=== PATIENT | male | born 1960 | race Caucasian/White ===

== ENCOUNTER → 2017-10-19 | Outpatient (CLI) | payer BC ==
[2017-10-19 08:56] LABS: Anion Gap 14 mmol/L; Blood Urea Nitrogen 12 mg/dL (9-20); Calcium 10.1 mg/dL (8.4-10.2); Carbon Dioxide 26 mmol/L (22-30); Chloride 101 mmol/L (98-107); Glucose 92 mg/dL (74-99); Potassium 4.6 mmol/L (3.5-5.1); Sodium 141 mmol/L (137-145)
== END | disposition home or self-care (01) ==
LOC: LABWHC1 07:34
PROVIDERS: ATTEND Internal Medicine Clinical Cardiac Electrophysiology
DX: E78.5 Hyperlipidemia, unspecified (principal)
CPT/HCPCS: 36415; 80048

== ENCOUNTER → 2017-10-25 | Outpatient (CLI) | payer BC ==
--- NOTE | 2017-10-25 09:28 | CT ---
EXAMINATION TYPE: CT angio thoracic/abd aorta DATE OF EXAM: 10/25/2017 COMPARISON: NONE HISTORY: Abdominal aortic aneurysm CT DLP: 760.2 mGycm. Automated Exposure Control for Dose Reduction was Utilized. CONTRAST: CT scan of the thorax, abdomen and pelvis is performed with IV Contrast, patient injected with 100 mL of Omnipaque 350. Three-dimensional reconstructions performed on an alternate workstation. FINDINGS: LUNGS: The lungs are grossly clear, there is no concerning parenchymal mass or nodule identified. Pritesh e minimal subpleural nodularity axial image 27-29 likely is postinflammatory There is no pleural ef fusion or pneumothorax seen. The tracheobronchial tree is patent. MEDIASTINUM: There are no greater than 1 cm hilar or mediastinal lymph nodes. No pericardial effusi on is seen. OTHER: Some reflux of contrast into the hepatic veins could be due to some right ventricular dysfunct ion. LIVER/GB: There is a mass present within the liver adjacent to the inferior vena cava measuring 6.8 c m with some mass effect seen on axial image 61 that is not fully characterized. Mass is within the in ferior aspect of the right lobe of the liver adjacent to the saravanan. Liver is enlarged. Gallbladder is unremarkable. PANCREAS: No significant abnormality is seen. SPLEEN: No significant abnormality is seen. ADRENALS: No significant abnormality is seen. KIDNEYS: Hypoechoic focus associated with the left kidney measures approximately 2.7 cm, no hydroneph rosis bilaterally BOWEL: No significant abnormality is seen. GENITAL ORGANS: No gross abnormality seen. LYMPH NODES: No greater than 1cm abdominal or pelvic lymph nodes are appreciated. OSSEOUS STRUCTURES: Degenerative disc changes are present in the lumbar spine especially at L5-S1 wit h associated vacuum phenomenon, facet arthropathy. Umbilical hernia contains fat. OTHER: Aorta shows normal caliber, there is no luminal abnormality to suggest dissection. 3 super aor tic branch vessels are present. IMPRESSION: No evident aneurysm. There is a liver mass, consider liver MRI. Probable cortical cyst wi thin the left kidney. Additional findings above.
== END | disposition home or self-care (01) ==
LOC: RADCTMAIN 07:32
PROVIDERS: ATTEND Internal Medicine Clinical Cardiac Electrophysiology
DX: R16.0 Hepatomegaly, not elsewhere classified (principal); R91.8 Other nonspecific abnormal finding of lung field
CPT/HCPCS: 75635; 71275; Q9967

== ENCOUNTER 2017-10-26 00:11 | Emergency (ER) | payer BC ==
[2017-10-26 00:18] VITALS: RESP 18
--- NOTE | 2017-10-26 00:28 | ED ---
Arrhythmia/Palpitations HPI - General Chief Complaint: Arrhythmia/Palpitations Stated Complaint: Tachycardia/Confusion Time Seen by Provider: 10/26/17 00:19 Source: patient Mode of arrival: ambulatory Limitations: no limitations - History of Present Illness Initial Comments: This patient is a 57-year-old man who presents to be evaluated for palpitations and a feeling like he was losing track of time. The patient states that all these symptoms came on around 10 PM tonight while he was at work. He states that he would get a feeling like his heart was racing, and then he felt like he was losing small amounts of time. Coworkers also told him that he looked like he was a little funny. The patient did not lose consciousness. He denies chest pain, dyspnea, diaphoresis, nausea or vomiting. He is not having any neurologic symptoms, including no change in vision or hearing, difficulty with speech or swallowing, weakness or numbness of the extremities. Patient relates that he had a contrast CT of the chest abdomen pelvis to follow-up on a possible aortic aneurysm, and this study was performed earlier today, the patient wonders if what happened tonight was related to the contrast. He states that when the symptoms came on tonight he did have a flushing sensation that felt similar to what he experienced when he received the CAT scan dye. Complaint: "heart racing" Onset/Timin -: hour(s) Context: occurred during rest Associated Symptoms: other (Mental status change) - Related Data Home Medications Medication Instructions Recorded Confirmed Simvastatin [Zocor] 20 mg PO DAILY 04/17/14 06/24/15 Allergies Allergy/AdvReac Type Severity Reaction Status Date / Time bee pollen Allergy Anaphylaxis Verified 10/26/17 00:18 Review of Systems ROS Statement: Those systems with pertinent positive or pertinent negative responses have been documented in the HPI. ROS Other: All systems not noted in ROS Statement are negative. Constitutional: Denies: fever, chills, weakness Eyes: Denies: vision change Respiratory: Denies: cough, dyspnea Cardiovascular: Reports: as per HPI, palpitations. Denies: chest pain, edema Gastrointestinal: Denies: abdominal pain, vomiting, diarrhea Musculoskeletal: Denies: back pain Skin: Denies: rash Neurological: Reports: as per HPI, confusion. Denies: headache, weakness, numbness, paresthesias Past Medical History Past Medical History: Hyperlipidemia Additional Past Medical History / Comment(s): "leaky valve" per pt. History of Any Multi-Drug Resistant Organisms: None Reported Past Surgical History: No Surgical Hx Reported Past Anesthesia/Blood Transfusion Reactions: No Reported Reaction Past Psychological History: No Psychological Hx Reported Smoking Status: Never smoker Past Alcohol Use History: None Reported Past Drug Use History: None Reported General Exam Limitations: no limitations General appearance: alert, in no apparent distress Head exam: Present: atraumatic, normocephalic Eye exam: Present: normal appearance. Absent: scleral icterus, conjunctival injection ENT exam: Present: normal oropharynx Respiratory exam: Present: normal lung sounds bilaterally. Absent: respiratory distress, wheezes, rales, rhonchi, stridor Cardiovascular Exam: Present: regular rate, normal rhythm, normal heart sounds. Absent: systolic murmur, diastolic murmur, rubs, gallop GI/Abdominal exam: Present: soft. Absent: distended, tenderness, guarding, rebound, mass Extremities exam: Present: normal inspection, normal capillary refill. Absent: pedal edema, calf tenderness Back exam: Present: normal inspection. Absent: CVA tenderness (R), CVA tenderness (L) Neurological exam: Present: alert, oriented X3, normal gait Skin exam: Present: warm, dry, intact, normal color. Absent: rash Course Vital Signs 10/26/17 00:14 Temperature 98.7 F Pulse Rate 71 Respiratory 18 Rate Blood Pressure 142/88 O2 Sat by Pulse 97 Oximetry EKG Findings - EKG Results: EKG: interpreted by SHANEKA COOPER, sinus rhythm (Rate approximate 69 bpm), normal axis, normal QRS, normal ST/T, no acute changes - NV, Pacemaker, Normal: Normal tracing: normal tracing Medical Decision Making - Medical Decision Making Patient is a 57-year-old man who presents with complaint of having had palpitations tonight with what may be near syncopal episode. He has an EKG that is in normal sinus rhythm and the monitor has not shown arrhythmia. I did offer the patient admission for further telemetry monitoring, but at this point he states he is feeling well and wants to follow-up. He does see Dr. Hdz and he will follow with Dr. Hdz calling for an appointment in the morning. We discussed return parameters and appropriate follow-up. - Lab Data Result diagrams: 10/26/17 00:30 10/26/17 00:30 Lab Results 10/26/17 10/26/17 10/26/17 Range/Units 00:30 00:30 00:30 WBC 9.4 (3.8-10.6) k/uL RBC 5.27 (4.30-5.90) m/uL Hgb 16.6 (13.0-17.5) gm/dL Hct 46.4 (39.0-53.0) % MCV 88.1 (80.0-100.0) fL MCH 31.4 (25.0-35.0) pg MCHC 35.7 (31.0-37.0) g/dL RDW 12.8 (11.5-15.5) % Plt Count 374 (150-450) k/uL Neutrophils % 67 % Lymphocytes % 26 % Monocytes % 4 % Eosinophils % 1 % Basophils % 1 % Neutrophils # 6.3 (1.3-7.7) k/uL Lymphocytes # 2.5 (1.0-4.8) k/uL Monocytes # 0.4 (0-1.0) k/uL Eosinophils # 0.1 (0-0.7) k/uL Basophils # 0.1 (0-0.2) k/uL PT (9.0-12.0) sec INR (<1.2) APTT (22.0-30.0) sec D-Dimer (<0.60) mg/L FEU Sodium 141 (137-145) mmol/L Potassium 4.6 (3.5-5.1) mmol/L Chloride 102 (98-107) mmol/L Carbon Dioxide 26 (22-30) mmol/L Anion Gap 13 mmol/L BUN 13 (9-20) mg/dL Creatinine 1.00 (0.66-1.25) mg/dL Est GFR (CKD-EPI)AfAm >90 (>60 ml/min/1.73 sqM) Est GFR (CKD-EPI)NonAf 83 (>60 ml/min/1.73 sqM) Glucose 100 H (74-99) mg/dL Calcium 10.1 (8.4-10.2) mg/dL Magnesium 2.4 H (1.6-2.3) mg/dL Total Bilirubin 0.6 (0.2-1.3) mg/dL AST 30 (17-59) U/L ALT 44 (21-72) U/L Alkaline Phosphatase 62 (38-126) U/L Total Creatine Kinase 149 (55-170) U/L CK-MB (CK-2) 1.0 (0.0-2.4) ng/mL CK-MB (CK-2) Rel Index 0.7 Troponin I <0.012 (0.000-0.034) ng/mL Total Protein 7.5 (6.3-8.2) g/dL Albumin 4.7 (3.5-5.0) g/dL TSH 1.070 (0.465-4.680) mIU/L 10/26/17 Range/Units 00:30 WBC (3.8-10.6) k/uL RBC (4.30-5.90) m/uL Hgb (13.0-17.5) gm/dL Hct (39.0-53.0) % MCV (80.0-100.0) fL MCH (25.0-35.0) pg MCHC (31.0-37.0) g/dL RDW (11.5-15.5) % Plt Count (150-450) k/uL Neutrophils % % Lymphocytes % % Monocytes % % Eosinophils % % Basophils % % Neutrophils # (1.3-7.7) k/uL Lymphocytes # (1.0-4.8) k/uL Monocytes # (0-1.0) k/uL Eosinophils # (0-0.7) k/uL Basophils # (0-0.2) k/uL PT 10.1 (9.0-12.0) sec INR 1.0 (<1.2) APTT 22.6 (22.0-30.0) sec D-Dimer 0.19 (<0.60) mg/L FEU Sodium (137-145) mmol/L Potassium (3.5-5.1) mmol/L Chloride (98-107) mmol/L Carbon Dioxide (22-30) mmol/L Anion Gap mmol/L BUN (9-20) mg/dL Creatinine (0.66-1.25) mg/dL Est GFR (CKD-EPI)AfAm (>60 ml/min/1.73 sqM) Est GFR (CKD-EPI)NonAf (>60 ml/min/1.73 sqM) Glucose (74-99) mg/dL Calcium (8.4-10.2) mg/dL Magnesium (1.6-2.3) mg/dL Total Bilirubin (0.2-1.3) mg/dL AST (17-59) U/L ALT (21-72) U/L Alkaline Phosphatase (38-126) U/L Total Creatine Kinase (55-170) U/L CK-MB (CK-2) (0.0-2.4) ng/mL CK-MB (CK-2) Rel Index Troponin I (0.000-0.034) ng/mL Total Protein (6.3-8.2) g/dL Albumin (3.5-5.0) g/dL TSH (0.465-4.680) mIU/L Disposition Clinical Impression: Palpitations Disposition: HOME SELF-CARE Condition: Good Instructions: Palpitations (ED) Referrals: Asad Greco MD [Primary Care Provider] - 1-2 days
[2017-10-26 01:15] LABS: Basophils # (A) 0.1 k/uL (0-0.2); Basophils % (A) 1 %; Eosinophils # (A) 0.1 k/uL (0-0.7); Eosinophils % (A) 1 %; HCT 46.4 % (39.0-53.0); HGB 16.6 gm/dL (13.0-17.5); Lymphocytes # (A) 2.5 k/uL (1.0-4.8); Lymphocytes % (A) 26 %; MCH 31.4 pg (25.0-35.0); MCHC 35.7 g/dL (31.0-37.0); MCV 88.1 fL (80.0-100.0); Mean Platelet Volume 6.4; Monocytes # (A) 0.4 k/uL (0-1.0); Monocytes % (A) 4 %; Neutrophils # (A) 6.3 k/uL (1.3-7.7); Neutrophils % (A) 67 %; Platelet Count 374 k/uL (150-450); RBC 5.27 m/uL (4.30-5.90); RDW 12.8 % (11.5-15.5); WBC 9.4 k/uL (3.8-10.6)
[2017-10-26 01:16] LABS: ALT 44 U/L (21-72); AST 30 U/L (17-59); Albumin 4.7 g/dL (3.5-5.0); Alkaline Phosphatase 62 U/L (38-126); Anion Gap 13 mmol/L; Blood Urea Nitrogen 13 mg/dL (9-20); Calcium 10.1 mg/dL (8.4-10.2); Carbon Dioxide 26 mmol/L (22-30); Chloride 102 mmol/L (98-107); Glucose 100 mg/dL (74-99); Potassium 4.6 mmol/L (3.5-5.1); Sodium 141 mmol/L (137-145); Total Bilirubin 0.6 mg/dL (0.2-1.3); Total Protein 7.5 g/dL (6.3-8.2)
[2017-10-26 01:25] LABS: D-Dimer 0.19 mg/L FEU (<0.60); Partial Thromboplastin Time 22.6 sec (22.0-30.0); Prothrombin Time 10.1 sec (9.0-12.0)
[2017-10-26 01:30] LABS: Creatine Kinase 149 U/L (55-170)
[2017-10-26 01:43] LABS: Troponin I <0.012 ng/mL (0.000-0.034)
[2017-10-26 02:25] VITALS: BP 133/81; PULSE 78; TEMP 98.2
== END 2017-10-26 02:25 | disposition home or self-care (01) ==
LOC: EC 00:11
DX: R00.2 Palpitations (principal); R41.82 Altered mental status, unspecified; E78.5 Hyperlipidemia, unspecified; Z79.899 Other long term (current) drug therapy; Z91.030 Bee allergy status
CPT/HCPCS: 36415; 80053; 82550; 82553; 83735; 84443; 84484; 85025; 85379; 85610; 85730; 93005; 99285

== ENCOUNTER → 2017-10-27 | Outpatient (CLI) | payer BC ==
--- NOTE | 2017-10-27 21:13 | MR ---
MR abdomen with and without contrast HISTORY: Abnormal CT, kidney mass, liver mass Multiplanar multisequence and postcontrast images following 10 cc Gadavist IV through the abdomen Correlation to prior exam CT 10/25/2017 The liver mass shows increased signal on T2-weighted images and measures approximately 6.9 x 6.1 x 6. 4 cm and is well-defined. There is some local mass effect on the right lateral wall of the inferior v eduardo cava The smaller lesion within the peripheral aspect of the right lobe of the liver shows similar signal characteristics and measures approximately 2 cm in greatest dimension. Following contrast adm inistration there is centripetal nodular and progressive enhancement over time compatible with mtich iomas. Some additional subcentimeter foci of increased signal on T2 weighted sequences, low signal on T1 compatible with scattered cysts. The liver shows signal drop on out of phase imaging suggesting underlying hepatic steatosis. Focus in the posterior aspect of the midpole the left kidney is again noted and shows no appreciable enhancement following contrast administration measuring approximately 2.5 cm. Increased signal seen o n T2-weighted sequences within this lesion. No evident mural nodule. IMPRESSION: Hemangiomas and cysts within the liver. Findings compatible with simple cyst within the l eft kidney.
== END | disposition home or self-care (01) ==
LOC: RADMRIMAIN 18:37
PROVIDERS: ATTEND Family Medicine
DX: K76.89 Other specified diseases of liver (principal); D18.09 Hemangioma of other sites
CPT/HCPCS: 74183; A9581

== ENCOUNTER → 2019-11-02 | Day surgery (SDC) | payer BC ==
[2019-10-31 14:13] VITALS: BMI 33.2
[~2019-11-02] MED LIST: LACTATED RINGERS 1,000 ML IV SCH; LIDOCAINE 1% (10MG/ML) FOR IV START INTRADERMA PRN; LIDOCAINE 1% INJ 10MG/ML (20 ML MDV) ONE; PROPOFOL 10 MG/ML 20 ML VIAL IV ONE
[2019-11-02 10:45] VITALS: TEMP 98.6
--- NOTE | 2019-11-02 11:12 | P.PCN ---
Date of Procedure: 11/02/19 Procedure(s) Performed: BRIEF HISTORY: Patient is a 59-year-old pleasant white male scheduled for an elective colonoscopy as a part of screening for colorectal neoplasia. His brother was diagnosed with colon cancer at age 35. Last colonoscopy was 10 years ago PROCEDURE PERFORMED: Colonoscopy. PREOPERATIVE DIAGNOSIS: Screening for colon cancer and family history of colon cancer. IV sedation per Anesthesia. PROCEDURE: After informed consent was obtained, the patient, was brought into the endoscopy unit. IV sedation was administered by Anesthesia under continuous monitoring. Digital rectal examination was normal. Initially the Olympus CF-160 flexible video colonoscope was then inserted in the rectum, gradually advanced into the cecum without any difficulty. Careful examination was performed as the scope was gradually being withdrawn. Ileocecal valve and the appendiceal orifice were visualized and appeared normal. Prep was excellent. Mucosa of the cecum, ascending colon, transverse colon, descending colon, sigmoid colon, and rectum appeared normal. Retroflexion was performed in the rectum and no lesions were seen. Scattered sigmoid diverticula cyst. The patient tolerated the procedure well. IMPRESSION: Normal-appearing colon from rectum to cecum with no evidence of colorectal neoplasia. Scattered sigmoid diverticulosis. RECOMMENDATIONS: Findings of this examination were discussed with the patient as well as his family. He was advised to have a repeat screening colonoscopy every 5 years because of the family history of colon cancer.
[2019-11-02 11:21] VITALS: RESP 17
[2019-11-02 11:31] VITALS: BP 100/60; PULSE 79
== END ==
LOC: ORWHC2ENDO 09:49
PROVIDERS: ATTEND Internal Medicine Gastroenterology
DX: Z12.11 Encounter for screening for malignant neoplasm of colon (principal); K57.30 Diverticulosis of large intestine without perforation or abscess without bleeding; E78.5 Hyperlipidemia, unspecified; Z87.891 Personal history of nicotine dependence; Z79.899 Other long term (current) drug therapy; Z80.0 Family history of malignant neoplasm of digestive organs
CPT/HCPCS: J2001; J2704; G0105; 45378

== ENCOUNTER → 2020-04-24 | Outpatient (CLI) | payer BC ==
--- NOTE | 2020-04-25 08:32 | XR ---
EXAMINATION TYPE: XR chest 2V DATE OF EXAM: 04/24/2020 COMPARISON: Prior chest x-ray 04/10/2015 HISTORY: R09.1 TECHNIQUE: Frontal and lateral views of the chest are obtained. FINDINGS: There is no focal air space opacity, pleural effusion, or pneumothorax seen. The cardiac silhouette size is within normal limits. The osseous structures are intact. IMPRESSION: No acute cardiopulmonary process.
== END | disposition home or self-care (01) ==
LOC: RAD 16:02
PROVIDERS: ATTEND Family Medicine
DX: R09.1 Pleurisy (principal)
CPT/HCPCS: 71046

== ENCOUNTER 2020-10-10 18:13 | Emergency (ER) | payer BC ==
[2020-10-10 18:19] VITALS: BP 163/80; PULSE 71; RESP 16; TEMP 98.4
[2020-10-10] MEDS ORDERED: LIDOCAINE 1% INJ 10MG/ML (20 ML MDV) SQ ONE (18:36)
--- NOTE | 2020-10-10 19:12 | ED ---
Wound/Laceration HPI - General Chief Complaint: Wound/Laceration Stated Complaint: Left leg wound Source: patient, RN notes reviewed Mode of arrival: ambulatory Limitations: no limitations - History of Present Illness Initial Comments: Patient is a 60-year-old male that presents to emergency department with left calf puncture wound. He noted that he was removing snow and punctured it on either his trailer or a shovel. He denied any pain in stating he was 0 out of 10. Wound to the left calf is approximately 1.5x1.5 cm with irregular edges. He did note that he is up-to-date on his tetanus as his last shot was in 2013. He denied any headache chest pain shortness breath nausea vomiting diarrhea comes patient to fatigue chills. - Related Data Home Medications Medication Instructions Recorded Confirmed Atorvastatin [Lipitor] 20 mg PO DAILY 10/31/19 11/02/19 Previous Rx's Medication Instructions Recorded Sulfamethox-Tmp 800-160Mg [Bactrim 1 each PO Q12HR #20 tab 10/10/20 Ds] Allergies Allergy/AdvReac Type Severity Reaction Status Date / Time bee pollen Allergy Anaphylaxis Verified 10/10/20 18:19 Review of Systems ROS Statement: Those systems with pertinent positive or pertinent negative responses have been documented in the HPI. ROS Other: All systems not noted in ROS Statement are negative. Past Medical History Past Medical History: Hyperlipidemia Additional Past Medical History / Comment(s): "leaky valve" per pt. History of Any Multi-Drug Resistant Organisms: None Reported Past Surgical History: No Surgical Hx Reported Additional Past Surgical History / Comment(s): HERNIA SURGERY (), VASECTOMY, COLONOSCOPY Past Anesthesia/Blood Transfusion Reactions: No Reported Reaction Additional Past Anesthesia/Blood Transfusion Reaction / Comment(s): SENSITIVE TO MEDICATIONS Past Psychological History: No Psychological Hx Reported Smoking Status: Never smoker Past Alcohol Use History: None Reported Past Drug Use History: None Reported - Past Family History Father Family Medical History: Cancer Additional Family Medical History / Comment(s): LUNG CANCER General Exam Limitations: no limitations General appearance: alert, in no apparent distress Head exam: Present: atraumatic, normocephalic, normal inspection Eye exam: Present: normal appearance, PERRL, EOMI. Absent: scleral icterus, conjunctival injection, periorbital swelling ENT exam: Present: mucous membranes moist Neck exam: Present: normal inspection. Absent: tenderness, meningismus, lymphadenopathy Respiratory exam: Present: normal lung sounds bilaterally. Absent: respiratory distress, wheezes, rales, rhonchi, stridor Cardiovascular Exam: Present: regular rate, normal rhythm, normal heart sounds. Absent: systolic murmur, diastolic murmur, rubs, gallop, clicks Extremities exam: Present: normal inspection, full ROM, normal capillary refill, other (Roller Turner wound to the posterior aspect of the left calf on the lateral side.). Absent: tenderness, pedal edema, joint swelling, calf tenderness Neurological exam: Present: alert, oriented X3, CN II-XII intact Psychiatric exam: Present: normal affect, normal mood Skin exam: Present: warm, dry, intact, normal color, other (1.5 x 1.5 cm laceration to the posterior lateral aspect of the left calf.). Absent: rash Course Vital Signs 10/10/20 18:17 Temperature 98.4 F Pulse Rate 71 Respiratory 16 Rate Blood Pressure 163/80 O2 Sat by Pulse 98 Oximetry Procedures - Laceration Laceration #1 Consent Obtained: verbal consent Site: lower extremity Size (cm): 2 Description: irregular Depth: simple, single layer Sedation/Analgesia: none Anesthetic Used: lidocaine 1% Anesthesia Technique: local infiltration Amount (mls): 5 Pre-repair: irrigated extensively Type of Sutures: nylon, vicryl Size of Sutures: 4-0 Number of Sutures: 8 Technique: simple, interrupted Patient Tolerated Procedure: well, no complications Medical Decision Making - Medical Decision Making She will male with puncture wound to left calf. X-ray of left lower extremity ordered. 1% lidocaine ordered. Patient handled suturing well. Case discussed with Dr. Rae, decided was located discharge patient home with oral antibiotics. - Radiology Data Radiology results: report reviewed, image reviewed No acute fracture seen Disposition Clinical Impression: Laceration Disposition: HOME SELF-CARE Condition: Stable Instructions (If sedation given, give patient instructions): Care For Your S titches (ED), Laceration (ED) Additional Instructions: Please return to the Emergency Department if symptoms worsen or any other concerns. Follow-up with primary care 1-2 days. Take antibiotics as prescribed until complete. Come back in 7-10 days for suture removal. Take [id number] pain medication as needed for pain control. Do not wash sutures or laceration from his 24 hours, then use warm water mild soap. After 24 hours he can leave to open air. Is patient prescribed a controlled substance at d/c from ED?: No Referrals: Asad Greco MD [Primary Care Provider] - 1-2 days Time of Disposition: 19:54
--- NOTE | 2020-10-10 19:16 | XR ---
EXAMINATION TYPE: XR tibia fibula LT DATE OF EXAM: 10/10/2020 COMPARISON: NONE HISTORY: Laceration TECHNIQUE: 4 views FINDINGS: I see no fracture nor dislocation. There is soft tissue air at the posterior upper calf on the lateral view consistent with laceration. There is also a linear metallic wire foreign body in the soft tissues posterior to the proximal tibia between middle and distal thirds. IMPRESSION: Soft tissue foreign body. Soft tissue air. No fracture seen.
== END 2020-10-10 20:06 | disposition home or self-care (01) ==
LOC: EC 18:13
DX: S81.812A Laceration without foreign body, left lower leg, initial encounter (principal); E78.5 Hyperlipidemia, unspecified; Z79.899 Other long term (current) drug therapy; Z91.030 Bee allergy status; W27.8XXA Contact with other nonpowered hand tool, initial encounter; Y93.89 Activity, other specified
CPT/HCPCS: 73590; 99283; 12001; J2001

== ENCOUNTER → 2021-08-04 | Outpatient (CLI) | payer BC ==
--- NOTE | 2021-08-04 16:27 | XR ---
EXAMINATION TYPE: XR chest 2V DATE OF EXAM: 08/04/2021 COMPARISON: 04/24/2020 TECHNIQUE: PA and lateral views submitted. HISTORY: Cough FINDINGS: The lungs are clear and there is no pneumothorax, pleural effusion, or focal pneumonia. Heart size normal. No overt failure. IMPRESSION: 1. No acute process.
== END | disposition home or self-care (01) ==
LOC: RADXRMAIN 15:34
PROVIDERS: ATTEND Nurse Practitioner Family
DX: R05.3 Chronic cough (principal)
CPT/HCPCS: 71046

== ENCOUNTER → 2022-05-05 | Outpatient (CLI) | payer BC ==
[2022-05-05 17:57] LABS: HCT 44.7 % (39.6-50.0); MCH 29.9 pg (27.0-32.0); MCHC 33.6 g/dL (32.0-37.0); MCV 89.2 fL (80.0-97.0); Mean Platelet Volume 8.6 fL (9.5-12.2); NRBC Per 100 WBC 0 /100 WBCS (0.0-0.0); Platelet Count 358 X 10*3/uL (140-440); RBC 5.01 X 10*6/uL (4.40-5.60); RDW 12.7 % (11.5-14.5); WBC 9.21 X 10*3/uL (4.50-10.00)
[2022-05-05 18:08] LABS: African American GFR (CKD) 88.8 (60.0-200.0); Anion Gap 12.1 mmol/L (10.00-18.00); Blood Urea Nitrogen 9.7 mg/dL (9.0-27.0); Non-African American GFR(CKD) 76.6 (60.0-200.0)
== END | disposition home or self-care (01) ==
LOC: LABPAT 13:02
PROVIDERS: ATTEND Internal Medicine Interventional Cardiology
DX: Z01.812 Encounter for preprocedural laboratory examination (principal); E78.5 Hyperlipidemia, unspecified; I35.1 Nonrheumatic aortic (valve) insufficiency
CPT/HCPCS: 80051; 82565; 84520; 85027

== ENCOUNTER 2022-05-06 06:26 | Day surgery (SDC) | payer BC ==
[~2022-05-06 06:26] MED LIST changes: +ALPRAZolam 0.25 MG TAB PO PRN; +ALPRAZolam 0.5 MG TAB PO PRN; +HEPARIN SODIUM,PORCINE 10,000 UNIT in SODIUM CHLORIDE 0.9% 1,000 ML IRRIGATION PRN; +HEPARIN SODIUM,PORCINE 2,500 UNIT in SODIUM CHLORIDE 0.9% 250 ML IRRIGATION PRN; -LACTATED RINGERS 1,000 ML IV SCH; -LIDOCAINE 1% (10MG/ML) FOR IV START INTRADERMA PRN; -LIDOCAINE 1% INJ 10MG/ML (20 ML MDV) ONE; +NITROGLYCERIN SL TABS 0.4 MG TAB SUBLINGUAL PRN; -PROPOFOL 10 MG/ML 20 ML VIAL IV ONE; +SODIUM CHLORIDE 0.9% 1,000 ML in EMPTY BAG 1 BAG IV SCH
[2022-05-06] MEDS ORDERED: SODIUM CHLORIDE 0.9% 1,000 ML IV ONE ×2 (06:44→08:21)
[2022-05-06 06:53] VITALS: RESP 16; TEMP 98.7
[2022-05-06] MEDS ORDERED: ASPIRIN 325 MG TAB PO ONE (07:00)
[2022-05-06] MEDS ORDERED: ATORVASTATIN 80 MG TAB PO ONE (07:00)
[2022-05-06] MEDS ORDERED: VERAPAMIL 2.5 MG/ML 2 ML AMP ONE (07:17)
[2022-05-06] MEDS ORDERED: HEPARIN SODIUM 1,000 UN/ML (10ML VL) ONE (07:17)
[2022-05-06] MEDS ORDERED: fentaNYL (PF) 50 MCG/ML 2 ML AMP ONE (07:29)
[2022-05-06] MEDS ORDERED: fentaNYL (PF) 50 MCG/ML 2 ML AMP IVP ONE (07:33)
[2022-05-06] MEDS ORDERED: LIDOCAINE 1% INJ 10MG/ML (30 ML VIAL-PF) SQ ONE (07:39)
[2022-05-06] MEDS ORDERED: VERAPAMIL SYRINGE (5 MG/10 ML) INTRAARTER ONE (07:44)
[2022-05-06] MEDS ORDERED: HEPARIN SODIUM 1,000 UN/ML (10ML VL) IVP ONE (07:50)
[2022-05-06] MEDS ORDERED: IOPAMIDOL-370 125ML BTL INJ ONE (08:00)
[2022-05-06] MEDS ORDERED: RX INFO: IV CONTRAST WAS GIVEN 1 EACH MISC MISCELLANE PRN (08:11)
[2022-05-06] MEDS ORDERED: SODIUM CHLORIDE 0.9% 1,000 ML IV SCH (08:15)
--- NOTE | 2022-05-06 08:16 | P.CARDCATH ---
Date of Procedure: 05/06/22 Description of Procedure: Cardiac Catheterization: The patient is a 61-year-old male, followed by Dr. Hdz with a history of hyperlipidemia who has been complaining of dyspnea. He had an abnormal MPI. Recommendations were made regarding cardiac catheterization, the risks and the complications were discussed with the patient who is in full understanding and agreement. Procedure Description: Patient was brought to organic lab worker in fasting semi-sedated state after receiving Fentanyl and Benadryl achieiving moderate conscious sedated state. Using Xylocaine Anesthesia and Seldinger technique, a 6-[place] sheath was introduced in the right radial artery . Subsequently, selective coronary angiography was performed using a 5-[place] 3.5 bend left Krista and 5 bend right Krista catheter. Multiple views of the coronary artery including hemiaxial views were obtained. The and right Krista catheter was used to cross the aortic valve and LVEDP was calculated. Following that, catheter and sheath were removed. Hemostasis was obtained with deployment of TR band . There was no immediate complication. Patient was returned to room in stable condition. Of note, the patient received a total of 5000 units of intravenous heparin as well as intra-arterial verapamil. Findings: Left main: This is a large size vessel, bifurcating into left circumflex and LAD artery, left main has no evidence of obstructive disease LAD: This is a large size vessel, reaching to the apex, giving rise to 2 diagonal branch, the LAD and its branches have no evidence of obstructive disease Left circumflex: This is a nondominant vessel giving rise to a large obtuse marginal branch, left circumflex has no evidence of high-grade stenosis RCA: This is a large dominant vessel bifurcating distally to PDA and PLV, right PLV reaches to the inferoapical lateral wall. The right coronary artery has no evidence of high-grade stenosis Left Ventriculogram: Not performed Hemodynamics: There was no gradient across the aortic valve , LVEDP was 8-10 mmHg Conclusion: 1. No evidence of obstructive coronary disease 2. Right dominance 3. Normal LVEDP Recommendations: I have recommended to continue medical therapy, I see no evidence of significant obstructive disease. The findings and the recommendations were discussed with t he patient and the family and they were in full understanding and agreement. Duration of sedation is 23 minutes.
[2022-05-06 13:26] VITALS: BP 106/61; PULSE 54
[2022-05-07] MEDS ORDERED: ASPIRIN 325 MG TAB PO PRN (06:00)
[2022-05-07] MEDS ORDERED: ATORVASTATIN 40 MG TAB PO SCH (09:00)
== END 2022-05-06 11:50 | disposition home or self-care (01) ==
LOC: CATHCVL 06:26
PROVIDERS: ATTEND Internal Medicine Interventional Cardiology
DX: I35.1 Nonrheumatic aortic (valve) insufficiency (principal); E78.5 Hyperlipidemia, unspecified; I51.89 Other ill-defined heart diseases; R06.00 Dyspnea, unspecified; Z20.822 Contact with and (suspected) exposure to COVID-19; Z79.899 Other long term (current) drug therapy
CPT/HCPCS: 93458; 87635; C1769 ×2; C1894; J2001; J3010; J1644; Q9967

== ENCOUNTER → 2022-11-10 | Outpatient (CLI) | payer BC ==
--- NOTE | 2022-11-10 13:23 | XR ---
EXAMINATION TYPE: XR chest 2V DATE OF EXAM: 11/10/2022 COMPARISON: NONE TECHNIQUE: PA and lateral views submitted. HISTORY: Cough FINDINGS: The lungs are clear and there is no pneumothorax, pleural effusion, or focal pneumonia. Heart size normal and no overt failure. Osseous structures intact. No overt failure. IMPRESSION: 1. No acute process.
== END | disposition home or self-care (01) ==
LOC: RADXRMAIN 13:05
PROVIDERS: ATTEND Family Medicine
DX: J18.9 Pneumonia, unspecified organism (principal)
CPT/HCPCS: 71046

== ENCOUNTER → 2023-04-21 | Outpatient (CLI) | payer BC ==
--- NOTE | 2023-04-21 12:14 | XR ---
EXAMINATION TYPE: XR cervical spine comp DATE OF EXAM: 04/21/2023 COMPARISON: NONE HISTORY: Pain TECHNIQUE: Four views are submitted. FINDINGS: The odontoid is intact. There are no compression deformities. The prevertebral soft tissue structur es are within normal limits. Multilevel hypertrophic and degenerative disc disease most marked at C5 -6 and C6-C7. There is multilevel facet arthropathy. Foraminal encroachment at C5-6 and C6-C7 pronoun vesta. Soft tissue calcification is aeration. IMPRESSION: 1. Multilevel degenerative disc disease and facet arthropathy with foraminal encroachment..
--- NOTE | 2023-04-21 12:15 | XR ---
EXAMINATION TYPE: XR shoulder complete LT DATE OF EXAM: 04/21/2023 COMPARISON: NONE HISTORY: pain TECHNIQUE: Three views are submitted. FINDINGS: The osseous structures are intact. There is no acute fracture or dislocation. Moderate AC joint arth ropathy. IMPRESSION: 1. Moderate AC joint arthropathy
== END | disposition home or self-care (01) ==
LOC: RADXRMAIN 11:37
PROVIDERS: ATTEND Family Medicine
DX: M19.012 Primary osteoarthritis, left shoulder (principal); M24.812 Other specific joint derangements of left shoulder, not elsewhere classified; M50.122 Cervical disc disorder at C5-C6 level with radiculopathy; M47.22 Other spondylosis with radiculopathy, cervical region
CPT/HCPCS: 72050

== ENCOUNTER → 2024-05-11 | Outpatient (CLI) | payer BC ==
--- NOTE | 2024-05-12 23:36 | MR ---
EXAMINATION TYPE: MR lumbar spine wo con DATE OF EXAM: 05/11/2024 COMPARISON: CTA thoracoabdominal pelvis aorta 10/25/2017, MR abdomen 10/27/2017 HISTORY: low back pain that radiates down left leg TECHNIQUE: Multiplanar, multisequence images of the lumbar spine were acquired without IV contrast. FINDINGS: The lumbar vertebral bodies do have preserved heights and alignment. Diffuse heterogenous appearance of the bone marrow. Multilevel disc desiccation is present. The conus medullaris and the distal spinal cord do appear unremarkable with regards to their signal intensity and morphology. T12-L1: No significant disc bulge or disc herniation. No spinal canal or neuroforaminal stenosis. L1-L2: No significant disc bulge or disc herniation. The facet joints are enlarged with mild ligamen t flavum resulting in minimal central canal narrowing. No significant neural foraminal narrowing. L2-L3: Broad-based disc bulge is identified with associated enlargement of the facet joints. The spi nal canal mildly narrowed. Neural canals are minimally narrowed bilaterally. . L3-L4: Broad-based disc bulge is identified with associated enlargement of the facet joints. The spi nal canal mildly narrowed. Neural canals are minimally narrowed bilaterally. L4-L5: Broad-based disc bulge is identified with associated enlargement of the facet joints. Ligamen abebe flavum buckling. The spinal canal moderately narrowed. Mild right neuroforaminal narrowing. Left anterior facet joint 4 mm synovial cyst causing moderate left neural foraminal stenosis. L5-S1: The intervertebral disc appears round on its contour posteriorly without significant mass eff ect upon the thecal sac. Facet joints are enlarged. Neural canals are mildly narrowed bilaterally. Other significant findings: Partial visualization of the left renal T2 hyperintense thin-walled at le ast 2.6 cm cyst. IMPRESSION: 1. No definitive evidence for disc herniation. 2. Multilevel disc degeneration with associated osteoarthritic changes. Most pronounced at L4-L5 wit h moderate spinal canal narrowing. [facility], , 05/12/2024 11:34 PM
== END | disposition home or self-care (01) ==
LOC: RADMRIMAIN 21:04
PROVIDERS: ATTEND Family Medicine
DX: M54.42 Lumbago with sciatica, left side
CPT/HCPCS: 72148